=== PATIENT | female | born 1995 | race Caucasian/White ===

== ENCOUNTER 2018-08-22 22:21 | Emergency (ER) | payer OTHER ==
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
--- NOTE | 2018-08-22 23:07 | XR ---
EXAM: XR Left Wrist Complete, 3 or More Views CLINICAL HISTORY: ITS.REASON XR Reason: Pain TECHNIQUE: Frontal, lateral and oblique views of the left wrist. COMPARISON: No relevant prior studies available. FINDINGS: Bones/joints: Unremarkable. No acute fracture. No dislocation. Soft tissues: Unremarkable. No radiopaque foreign body. IMPRESSION: Normal left wrist x-rays.
[2018-08-23 00:05] LABS: Amphetamine Screen,Urine Not Detected (NotDetected); Barbiturate Screen,Urine Not Detected (NotDetected); Benzodiazepines Screen,Urine Detected (NotDetected); Cocaine Screen,Urine Detected (NotDetected); Methadone Screen, Urine Not Detected (NotDetected); Opiate Screen,Urine Detected (NotDetected); Oxycodone Screen, Urine Not Detected (NotDetected); Phencyclidine Screen,Urine Not Detected (NotDetected); Tricyclic Antidepressant,Urine Not Detected (NotDetected); Urn Cannabinoid Scrn Detected (NotDetected)
[2018-08-23 01:40] VITALS: TEMP 97.7
[2018-08-23 03:43] VITALS: BP 108/66; PULSE 115; RESP 14
== END 2018-08-23 04:00 | disposition home or self-care (01) ==
LOC: EC 22:21
DX: F19.10 Other psychoactive substance abuse, uncomplicated (principal); F32.9 Major depressive disorder, single episode, unspecified; S69.92XA Unspecified injury of left wrist, hand and finger(s), initial encounter; Z79.891 Long term (current) use of opiate analgesic; Z79.899 Other long term (current) drug therapy; X58.XXXA Exposure to other specified factors, initial encounter
CPT/HCPCS: 80306; 81025; 82075; 99284